=== PATIENT | female | born 1945 | race Caucasian/White ===

== ENCOUNTER 2024-02-24 16:48 | Emergency (ER) | payer MEDICARE, BC, SELFPAY ==
[2024-02-24 17:07] VITALS: BP 124/64; PULSE 84; RESP 22; TEMP 36.9; O2SAT 96; BMI 19.5
--- NOTE | 2024-02-24 17:20 | ED_ITS ---
Documented by User: Lewis Mata DO 02/25/24 06:15 HPI - Skin/Abscess/Foreign Bdy 2 General: Chief complaint: Skin/Abscess/Foreign Body Stated complaint: Head bleeding - injury Time Seen by Provider: 02/24/24 17:16 History of Present Illness: 78-year-old female [facility] to [facility] room with a abscess on the left occipital region. The beginning of this month she had fallen and hit her head had a laceration which was repaired after the stitches were removed she began having swelling drainage she is complaining of exquisite tenderness drainage she denies any fever sweats or chills. Associated symptoms: Deny chills or fever(s) Related Data Previous Rx's Medication Instructions Recorded cephalexin 500 mg capsule 500 mg PO Q8H 7 days #21 caps 02/24/24 hydrocodone 5 mg-acetaminophen 325 1 tab PO Q4H PRN pain #14 tabs 02/24/24 mg tablet Allergies Allergy/AdvReac Type Severity Reaction Status Date / Time mold Allergy Unknown Verified 02/24/24 17:13 Review of Systems 2 Const: Denies: fever(s) or chills Physical Exam 2 Const: ORIENTATION/CONSCIOUSNESS: Yes awake HENMT: COMMON NORMALS: normocephalic and hearing grossly normal bilaterally HEAD & SCALP: normocephalic OTHER: Scalp abscess there is total left of the midline on the inferior aspect of the occiput. Difficult to assess patient is intolerant of even light touch in exam attempted to remove the hair and she screams in pain. Pain is disproportionate to exam. Inferior aspect of the abscess has an open area that is draining a blood-tinged purulent thick fluid. Unable to assess today because patient could not tolerate exam. Resp: COMMON NORMALS: normal respiratory effort, No retractions, No use of accessory muscles and clear to auscultation bilaterally AUSCULTATION: clear to auscultation bilaterally Cardio: COMMON NORMALS: regular rate, regular rhythm and No murmurs present (Cardio) RATE: regular rate RHYTHM: regular rhythm Course 2 Vital Signs: Vital signs: Vital Signs Temperature 98.5 F 02/24/24 17:07 Pulse Rate 96 02/24/24 20:25 Respiratory Rate 18 02/24/24 18:35 Blood Pressure 122/75 02/24/24 20:25 Pulse Oximetry 94 02/24/24 20:25 Oxygen Delivery Me thod Room Air 02/24/24 18:36 MDM - Skin/Abscess/Foreign Bdy Medicial Decision Making Care signed out to Dr. Carrasco at change of shift. See final notes for diagnosis and disposition. Medical Records Patient has an abscess on the left occipital parietal scalp area. CT has been obtained that does not show any intracranial associated injury. There appears to dispute the scalp hematoma. On examination, I am concerned about the fluctuance and purulent drainage from the area. Incision and drainage with packing has been performed at this area. Wound culture is also been obtained. Plan for discharge home on Keflex 500 3 times daily x 7 days. Of also given her Aledo 5 to take 1 every 4-6 hours as needed for pain, quantity of 14. I have instructed them to remove the packing in 48 hours. Lab Data 02/24/24 17:[address] 02/24/24 17:37 IMPRESSION: No acute intracranial abnormality. Laboratory Results WBC 12.13 10^3/uL (3.29-11.43) H 02/24/24 17:41 RBC 3.54 10^6/uL (3.85-5.65) L 02/24/24 17:41 Hgb 11.40 g/dL (11.27-16.99) 02/24/24 17:41 Hct 35.8 % (36-47) L 02/24/24 17:41 MCV 101.1 fl (85-98) H 02/24/24 17:41 MCH 32.2 pg (27-33) 02/24/24 17:41 MCHC 31.8 g/dL (30-55) 02/24/24 17:41 RDW 14.4 % (12.1-15.1) 02/24/24 17:41 Plt Count 177 10^3/cmm (157-399) 02/24/24 17:41 MPV 9.9 fL (7.4-10.4) 02/24/24 17:41 Neut % (Auto) 72.7 % 02/24/24 17:41 Lymph % (Auto) 15.3 % 02/24/24 17:41 Meade % (Auto) 11.4 % 02/24/24 17:41 Eos % (Auto) 0.2 % 02/24/24 17:41 Baso % (Auto) 0.2 % 02/24/24 17:41 Neut # (Auto) 8.81 10^3/uL (1.8-7.7) H 02/24/24 17:41 Lymph # (Auto) 1.9 10^3/uL (0.8-4.8) 02/24/24 17:41 Meade # (Auto) 1.4 10^3/uL (0.2-0.9) H 02/24/24 17:41 Eos # (Auto) 0.0 10^3/uL (0.0-0.8) 02/24/24 17:41 Baso # (Auto) 0.0 10^3/uL (0.0-0.1) 02/24/24 17:41 Nucleated RBC % (auto) 0 % 02/24/24 17:41 Nucleated RBCs # 0.0 /100WBC 02/24/24 17:41 Discharge Plan Discharge Patient Disposition: Home Clinical Impression: Abscess of skin or subcutaneous tissue Condition: Stable Prescriptions: New cephalexin 500 mg capsule 500 mg PO Q8H 7 Days Qty: 21 0RF hydrocodone-acetaminophen 5-325 mg tablet 1 tab PO Q4H PRN (Reason: pain) Qty: 14 0RF Discharge Orders: Discharge ED (Routine); Ordered 02/24/24 Ordered By: Yamilet Carrasco Discharge Diet: Advance as tolerated Discharge Activity: Increase activity as tolerated Patient Instructions: Abscess (ED), Opioid Safety, Pain Management Activity Restrictions/Additional Instructions: Remove the packing in 48 hours. Take antibiotics 3 times daily until gone. You can take the Aledo every 4-6 hours as needed for pain. Return if you have increased pain, increased swelling, persistent fever. Follow-up as needed with your primary care provider Coding Level of Care Code ED Filing Or Registry Clerk for Chg Fwd Documented by User: Yamilet Carrasco MD 02/24/24 20:24 HPI - Skin/Abscess/Foreign Bdy 2 General: Chief complaint: Skin/Abscess/Foreign Body Stated complaint: Head bleeding - injury Time Seen by Provider: 02/24/24 17:16 Related Data Previous Rx's Medication Instructions Recorded cephalexin 500 mg capsule 500 mg PO Q8H 7 days #21 caps 02/24/24 hydrocodone 5 mg-acetaminophen 325 1 tab PO Q4H PRN pain #14 tabs 02/24/24 mg tablet Allergies Allergy/AdvReac Type Severity Reaction Status Date / Time mold Allergy Unknown Verified 02/24/24 17:13 Procedures Abscess I/D Site: scalp Side (if applicable): left Sedation/analgesia: other (Ativan and morphine) Local Anesthetic: lidocaine 1% Amount of anesthesia used (mL): 6 Technique: incised with #11 blade Amount of fluid expressed (mL): 5 Irrigation: Yes Packing used?: plain Complications: other (None) Course 2 Vital Signs: Vital signs: Vital Signs Temperature 98.5 F 02/24/24 17:07 Pulse Rate 96 02/24/24 20:25 Respiratory Rate 18 02/24/24 18:35 Blood Pressure 122/75 02/24/24 20:25 Pulse Oximetry 94 02/24/24 20:25 Oxygen Delivery Me thod Room Air 02/24/24 18:36 MDM - Skin/Abscess/Foreign Bdy Medical Records Patient has an abscess on the left occipital parietal scalp area. CT has been obtained that does not show any intracranial associated injury. There appears to dispute the scalp hematoma. On examination, I am concerned about the fluctuance and purulent drainage from the area. Incision and drainage with packing has been performed at this area. Wound culture is also been obtained. Plan for discharge home on Keflex 500 3 times daily x 7 days. Of also given her Aledo 5 to take 1 every 4-6 hours as needed for pain, quantity of 14. I have instructed them to remove the packing in 48 hours. Lab Data Patient does have a very minimal leukocytosis with a white blood cell count of 12.13. Wound culture is pending 02/24/24 17:[address] 02/24/24 17:37 IMPRESSION: No acute intracranial abnormality. Laboratory Results WBC 12.13 10^3/uL (3.29-11.43) H 02/24/24 17:41 RBC 3.54 10^6/uL (3.85-5.65) L 02/24/24 17:41 Hgb 11.40 g/dL (11.27-16.99) 02/24/24 17:41 Hct 35.8 % (36-47) L 02/24/24 17:41 MCV 101.1 fl (85-98) H 02/24/24 17:41 MCH 32.2 pg (27-33) 02/24/24 17:41 MCHC 31.8 g/dL (30-55) 02/24/24 17:41 RDW 14.4 % (12.1-15.1) 02/24/24 17:41 Plt Count 177 10^3/cmm (157-399) 02/24/24 17:41 MPV 9.9 fL (7.4-10.4) 02/24/24 17:41 Neut % (Auto) 72.7 % 02/24/24 17:41 Lymph % (Auto) 15.3 % 02/24/24 17:41 Meade % (Auto) 11.4 % 02/24/24 17:41 Eos % (Auto) 0.2 % 02/24/24 17:41 Baso % (Auto) 0.2 % 02/24/24 17:41 Neut # (Auto) 8.81 10^3/uL (1.8-7.7) H 02/24/24 17:41 Lymph # (Auto) 1.9 10^3/uL (0.8-4.8) 02/24/24 17:41 Meade # (Auto) 1.4 10^3/uL (0.2-0.9) H 02/24/24 17:41 Eos # (Auto) 0.0 10^3/uL (0.0-0.8) 02/24/24 17:41 Baso # (Auto) 0.0 10^3/uL (0.0-0.1) 02/24/24 17:41 Nucleated RBC % (auto) 0 % 02/24/24 17:41 Nucleated RBCs # 0.0 /100WBC 02/24/24 17:41 All radiology interpretation(s) finalized by discharge Discharge Plan Discharge Patient Disposition: Home Clinical Impression: Abscess of skin or subcutaneous tissue Condition: Stable Prescriptions: New cephalexin 500 mg capsule 500 mg PO Q8H 7 Days Qty: 21 0RF hydrocodone-acetaminophen 5-325 mg tablet 1 tab PO Q4H PRN (Reason: pain) Qty: 14 0RF Discharge Orders: Discharge ED (Routine); Ordered 02/24/24 Ordered By: Yamilet Carrasco Discharge Diet: Advance as tolerated Discharge Activity: Increase activity as tolerated Patient Instructions: Abscess (ED), Opioid Safety, Pain Management Activity Restrictions/Additional Instructions: Remove the packing in 48 hours. Take antibiotics 3 times daily until gone. You can take the Aledo every 4-6 hours as needed for pain. Return if you have increased pain, increased swelling, persistent fever. Follow-up as needed with your primary care provider Coding Level of Care Code ED Filing Or Registry Clerk for Annie Bravo
--- NOTE | 2024-02-24 17:37 | CTR_ITS ---
PROCEDURE INFORMATION: Exam: CT Head Without Contrast Exam date and time: 02/24/2024 5:55 PM Age: 78 years old Clinical indication: Injury or trauma; Fall; Wound, open; Without loss of consciousness; Scalp; Not specified; Additional info: Scalp abscess TECHNIQUE: Imaging protocol: Computed tomography of the head without contrast. Radiation optimization: All CT scans at this facility use at least one of these dose optimization techniques: automated exposure control; mA and/or kV adjustment per patient size (includes targeted exams where dose is matched to clinical indication); or iterative reconstruction. COMPARISON: No relevant prior studies available. RADIATION DOSE METRICS: Total DLP (mGy-cm): 1022.68 FINDINGS: Brain: No hemorrhage. No edema. Moderate diffuse cerebral atrophy and mild sequela of chronic small vessel ischemic disease. 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 No mass effect. Cerebral ventricles: No ventriculomegaly. Paranasal sinuses: Visualized sinuses are unremarkable. No fluid levels. Mastoid air cells: Visualized mastoid air cells are well aerated. Bones: Unremarkable. No acute fracture. Soft tissues: Left superior posterolateral scalp laceration and hematoma. CT/CT head wo con* [id number] IMPRESSION: No acute intracranial abnormality.
[2024-02-24 17:56] VITALS: BP 131/82; PULSE 83; O2SAT 92
[2024-02-24 17:56] LABS: Basophils % 0.2 %; Eosinophils % 0.2 %; Hematocrit 35.8 % (36-47); Lymphocytes # 1.9 10^3/uL (0.8-4.8); Lymphocytes % 15.3 %; Mean Corpuscular HGB Conc 31.8 g/dL (30-55); Mean Corpuscular Hemoglobin 32.2 pg (27-33); Mean Corpuscular Volume 101.1 fl (85-98); Mean Platelet Volume 9.9 fL (7.4-10.4); Monocytes # 1.4 10^3/uL (0.2-0.9); Monocytes % 11.4 %; Neutrophils # 8.81 10^3/uL (1.8-7.7); Neutrophils % 72.7 %; Nucleated Red Blood Cells % 0 %; Platelet Count 177 10^3/cmm (157-399); Red Blood Count 3.54 10^6/uL (3.85-5.65); Red Cell Distribution Width 14.4 % (12.1-15.1); White Blood Count 12.13 10^3/uL (3.29-11.43)
[2024-02-24 18:35] VITALS: RESP 18; O2SAT 95
[2024-02-24] MEDS: ondansetron 2 mg/ML SDV 2 mL 4 MG IVP (18:35)
[2024-02-24] MEDS: morphine 4 mg/mL SDV 1 mL 2 MG IVP (18:35)
[2024-02-24 18:36] VITALS: BP 109/61; PULSE 79; O2SAT 93
[2024-02-24] MEDS: morphine 4 mg/mL SDV 1 mL IVP (19:36)
[2024-02-24] MEDS: LORazepam 2 mg/mL INJ 1 mL 1 MG IVP (19:36)
[2024-02-24] MEDS: lidocaine 1% 10 ML INJ INJECTION (19:47)
[2024-02-24 20:25] VITALS: BP 122/75; PULSE 96; O2SAT 94
== END 2024-02-24 20:41 | disposition home or self-care (01) ==
PROVIDERS: Family Medicine; Emergency Provider Emergency Medicine
DX: L02.811 Cutaneous abscess of head [any part, except face] (principal)
CPT/HCPCS: 10060; 36415; 70450; 85025; 87040; 87070; 87077; 87186; 96374; 96375; 96376; 99285; J2060; J2270; J2405

== ENCOUNTER 2024-02-26 05:23 | Emergency (ER) | payer MEDICARE, BC, SELFPAY ==
[2024-02-26 05:57] VITALS: BP 120/76; PULSE 66; RESP 15; O2SAT 95; BMI 19.5
[2024-02-26 06:06] VITALS: BP 105/66; PULSE 66; O2SAT 94
--- NOTE | 2024-02-26 09:16 | P.CONIM_ITS ---
Providers/Reason For Consult Consulting Physician/Specialty*: Dr. Jacob Ospina, DO/General Surgery Reason for Consult*: Scalp hematoma History of Present Illness History of Present Illness Roxana Hinds is a 78 year old female who originally fell and hit the back of her head on January 29. She reportedly underwent suture repair of the laceration and then developed a hematoma. 2 days ago she had an I&D of this area with some purulent drainage and packing. When she changes the bandage there is significant bleeding which concerned her. She lives in [place] and is due to drive back home, a 2-day drive, today. She has some mild tenderness at the area with palpation. The pain does not radiate. Not touching it makes pain better. She denies any fever or chills Review of Systems General: Reports: 10 or more systems reviewed and unremarkable except in HPI and below Medications/Allergies Home Medications Medication Instructions Recorded Confirmed Last Taken Type cephalexin 500 mg capsule 500 mg PO Q8H 7 days #21 caps 02/24/24 Unknown Rx hydrocodone 5 mg-acetaminophen 325 1 tab PO Q4H PRN pain #14 tabs 02/24/24 Unknown Rx mg tablet Allergies Allergy/AdvReac Type Severity Reaction Status Date / Time mold Allergy Unknown Verified 02/24/24 17:13 Vitals/I&O/Wt Last Vital Signs Pulse 66 02/26/24 06:06 Resp 15 02/26/24 05:57 BP 105/66 02/26/24 06:06 Pulse Ox 94 02/26/24 06:06 O2 Del Method Room Air 02/26/24 06:06 Weight last 48 hrs Weight 110 lb Physical Exam Narrative: General : Patient is well developed , no acute distress, oriented x3 Head : Normal cephalic, a-traumatic. Ears : Pinnae and external canal are normal. Hearing is normal. Eyes : PERRLA, Sclera and injection are normal. No conjunctival discharge. Nose : Mucous membranes are without erythema. Throat : buccal mucosa is normal, gums are without significant recession or hypertrophy. Lungs : Equal chest rise bilaterally, no use of accessory muscles, trachea is midline. Cor : Rate and rhythm are normal. Abdomen : Soft, ND, NT, no g/r/m Skin: There is an area of pressure necrosis over a hematoma on her posterior scalp. There is no purulent drainage at this time. Some bloody output, no overt infection Extremities : No edema, no cyanosis or clubbing, dorsalis pedis pulses are present bilaterally, non-tender to palpation of calves. Upper extremities are normal bilaterally. Back : non-tender to palpation, no CVA tenderness. Neuro : CN II - XII intact, Upper and lower extremities have equal and full strength A&P Assessment and plan (1) Scalp hematoma: Plan Recommend continuing Keflex and changing the bandage with dry gauze and pressure dressing if needed once daily. Recommend she follow-up with wound care back in [place] with possible plastic surgery. No acute surgical intervention. Coding Level of Care Code 24714 Diagnoses Scalp hematoma S00.03XA
--- NOTE | 2024-02-26 09:16 | W.ED.SKABFB ---
HPI - Skin/Abscess/Foreign Bdy General: Chief complaint: Skin/Abscess/Foreign Body Stated complaint: head bleeding again Time Seen by Provider: 02/26/24 06:06 History of Present Illness: This patient is a 78-year-old who lives in [place]. She is here visiting. She fell on and had a laceration to her scalp. She was treated locally in [place] with sutures. Her daughter who is with her today reports that the wound bled for 5 days even after the sutures were placed. After that it finally stopped. Sutures were removed at 10 days. The patient has continued to have a large hematoma in that area. A few days ago while they were traveling here she bumped her head against the headrest in the vehicle and it started bleeding. Since then it has continued to bleed off and on. She was seen here 2 days ago and had an incision and drainage done. At that time there was some purulent drainage and she was started on Keflex. She still has packing in and they return to have that removed and also to see why it continues to bleed. She denies fevers. She feels overall fairly well. Related Data Previous Rx's Medication Instructions Recorded cephalexin 500 mg capsule 500 mg PO Q8H 7 days #21 caps 02/24/24 hydrocodone 5 mg-acetaminophen 325 1 tab PO Q4H PRN pain #14 tabs 02/24/24 mg tablet Allergies Allergy/AdvReac Type Severity Reaction Status Date / Time mold Allergy Unknown Verified 02/24/24 17:13 Physical Exam Const: COMMON NORMALS: no acute distress, patient oriented x3, no limitations and alert GENERAL APPEARANCE: cooperative and comfortable OTHER: Anxious HENMT: OTHER: The left posterior scalp has a large hematoma. The area of the incision and drainage is visible and packing was removed. There was minimal purulent drainage. There is a central area in the hematoma of approximately 4 cm in diameter. This is blackened eschar. Surrounding that the skin is delicate and friable and well cleaning the area more openings in the skin developed. Eye: GENERAL EYE: appearance normal, both eyes and all related structures Neck/C-Spine: COMMON NORMALS: supple, no meningeal signs and no JVD Chest: COMMONS NORMALS: normal inspection of the chest Resp: COMMON NORMALS: normal respiratory effort, No use of accessory muscles and clear to auscultation bilaterally AUSCULTATION: clear to auscultation bilaterally Cardio: COMMON NORMALS: no JVD, regular rate, regular rhythm and No murmurs present (Cardio) RATE: regular rate RHYTHM: regular rhythm GI: COMMON NORMALS: Normal to inspection, nondistended, normoactive bowel sounds present, Soft to palpation and non-tender INSPECTION: Yes normal to inspection AUSCULTATION: Yes normoactive bowel sounds PALPATION: Yes Soft to palpation Back/Pelvis: COMMON NORMALS: thoracic and lumbar spine normal to inspection Extremity: COMMON NORMALS: normal to inspection Neuro: COMMON NORMALS: patient oriented x3, moves all extremities, no focal motor deficits and no sensory deficits noted SENSORIUM/ORIENTATION: Yes alert MENINGEAL SIGNS: Yes no meningeal signs Psych: COMMON NORMALS: mental status grossly normal, cooperative and normal affect Skin: COMMON NORMALS: no rashes or lesions noted and turgor normal GENERAL SKIN EXAM: no rashes or lesions noted and turgor normal Course Vital Signs: Vital signs: Vital Signs Pulse Rate 78 02/26/24 09:27 Respiratory Rate 15 02/26/24 05:57 Blood Pressure 138/82 02/26/24 09:27 Pulse Oximetry 91 02/26/24 09:27 Oxygen Delivery Me thod Room Air 02/26/24 06:06 MDM - Skin/Abscess/Foreign Bdy Medicial Decision Making I suspect the skin over the area of hematoma has necrosis and that this will need to be debrided and closed by secondary intention. The patient and her daughter are planning to drive back to [place] this morning. We discussed in some detail the extent of wound care that this would need. We debated whether that could be done here and then she could travel home once more definitive treatment had taken place. I spoke with our general surgeon, Dr. Ospina, and he did come to see the patient in the ER. He felt that she would be safe to travel home. I think in the long-term that would provide more consistency in her care and follow-up. The wound was cleaned extensively and dressed with a bulky gauze dressing. Dr. Ospina's recommendation was to have them change the dressing once daily. They should be back in [place] by Tuesday evening and will follow-up with her primary care doctor at that time. She will continue on Keflex. No radiology studies performed this visit Discharge Plan Discharge Patient Disposition: Home Clinical Impression: Skin necrosis, Lesion of skin of scalp Condition: Stable Prescriptions: No Action cephalexin 500 mg capsule 500 mg PO Q8H 7 Days Qty: 21 0RF hydrocodone-acetaminophen 5-325 mg tablet 1 tab PO Q4H PRN (Reason: pain) Qty: 14 0RF Discharge Orders: Discharge ED (Routine); Ordered 02/26/24 Ordered By: Reyna Lacey Discharge Diet: Advance as tolerated Discharge Activity: Limit activity as instructed Patient Instructions: Opioid Safety, Pain Management Activity Restrictions/Additional Instructions: Change dressing once daily - pad the area well with gauze and wrap snuggly. Follow up with your doctor immediately upon returning home. Continue the antibiotic as prescribed. Coding Level of Care Code ED Dental Hygienist for Annie Bravo
[2024-02-26 09:27] VITALS: BP 138/82; PULSE 78; O2SAT 91
== END 2024-02-26 09:28 | disposition home or self-care (01) ==
PROVIDERS: Emergency Provider Emergency Medicine
DX: I96 Gangrene, not elsewhere classified (principal); L98.9 Disorder of the skin and subcutaneous tissue, unspecified; S00.03XA Contusion of scalp, initial encounter; W22.8XXA Striking against or struck by other objects, initial encounter
CPT/HCPCS: 99282